=== PATIENT | female | born 1955 | race Asian ===

== ENCOUNTER 2018-02-22 14:47 | Observation (INO) | payer MEDICARE, OTHER ==
[~2018-02-22] VITALS: Ht 147.3 cm; Wt 64.4 kg
[2018-02-22] VITALS (9 sets, daily range): BP systolic 98–145; BP diastolic 56–84; PULSE 68–87; RESP 16–20; TEMP 97.3–98.6; O2SAT 94–96
[2018-02-22] MEDS ORDERED: IOHEXOL 350 MG/ML 10 ML VIAL (for RAD DIAG) IVCONTRAST ONE (14:48)
[2018-02-22] MEDS ORDERED: MULT-65 PO (15:13)
[2018-02-22] MEDS ORDERED: KRIL500C2 PO (15:13)
[2018-02-22] MEDS ORDERED: ROSU40 PO (15:13)
[2018-02-22] MEDS ORDERED: CYMB30CA PO (15:13)
[2018-02-22] MEDS ORDERED: AMLO10TA2 PO (15:13)
[2018-02-22] MEDS ORDERED: OCUVTAB PO (15:13)
[2018-02-22] MEDS ORDERED: ASPI-516 CHEW (15:13)
[2018-02-22] MEDS ORDERED: SODIUM CHLORIDE 0.9% FLUSH 10 ML FLUSH IVF PRN (15:30)
--- NOTE | 2018-02-22 15:33 | PD ---
HPI Chief Complaint: Chest Pain Time Seen by Provider: 15:13 Travel History International Travel<30 days: No Contact w/Intl Traveler<30days: No Traveled to known affect area: No History of Present Illness HPI The patient was seen and examined in the presence of the nurse. This patient complains of chest pain. For the last several days she has had intermittent squeezing left-sided chest pains. They radiated up into her neck and face toward her head. They are not exertional. She has history of ME. She has no stents or bypass grafting. She has history of known thoracic aortic aneurysm that was getting monitored every 2 years by her physician in [place] but she does admit to noncompliance and has been skipping those checks. She does not know how large it is. Symptom severity is moderate. No alleviating factors. No exacerbating factors. PFSH Past Medical History Hx Anticoagulant Therapy: Yes (BABY ASA) AAA: Yes Cardiovascular Problems: Yes (ME, HTN, CHOL AAA) High Cholesterol: Yes Diabetes: No Diminished Hearing: No Hypertension: Yes Tetanus Vaccination: Unknown ?: Not Social History Alcohol Use: No Tobacco Use: No Substance Use: No Allergies-Medications (Allergen,Severity, Reaction): Coded Allergies: No Known Drug Allergies (Verified Allergy, Unknown, 02/22/18) Reported Meds & Prescriptions Reported Meds & Active Scripts Active Reported Krill Oil 500 Mg Capsule 500 Mg PO DAILY Ocuvite (Multiple Vitamins W/ Minerals) 1 Tab 1 Tab PO DAILY Multi-Vitamin Daily (Multiple Vitamin) 1 Tab Tab 1 Tab PO DAILY Cymbalta DR (Duloxetine HCl) 30 Mg Capdr 30 Mg PO TID Crestor (Rosuvastatin Calcium) 40 Mg Tab 40 Mg PO HS Amlodipine (Amlodipine Besylate) 10 Mg Tab 10 Mg PO DAILY Aspirin 81 Mg Chew 81 Mg CHEW DAILY Review of Systems General / Constitutional: No: Fever Eyes: No: Visual changes HENT: No: Vertigo Cardiovascular: Positive: Chest Pain or Discomfort Respiratory: No: Shortness of Breath Gastrointestinal: No: Abdominal Pain Genitourinary: No: Dysuria Musculoskeletal: No: Pain Skin: No Rash Neurologic: No: Weakness Psychiatric: No: Depression Endocrine: No: Polydipsia Hematologic/Lymphatic: No: Easy Bruising Physical Exam Narrative GENERAL: Well-nourished, well-developed patient in no apparent distress. SKIN: Focused skin assessment reveals no rash and nodules. Skin is Warm and dry. HEAD: Atraumatic. Normocephalic. EYES: Pupils equal and round. No scleral icterus. No injection or drainage. ENT: No nasal bleeding or discharge. Mucous membranes pink and moist. NECK: Trachea midline. No JVD. CARDIOVASCULAR: Regular rate and rhythm. No murmur appreciated. RESPIRATORY: No accessory muscle use. Clear to auscultation. Breath sounds equal bilaterally. GASTROINTESTINAL: Abdomen soft, non-tender, nondistended. Hepatic and splenic margins not palpable. MUSCULOSKELETAL: No obvious deformities. No clubbing. No cyanosis. No edema. NEUROLOGICAL: Awake and alert. No obvious cranial nerve deficits. Motor grossly within normal limits. Normal speech. PSYCHIATRIC: Appropriate mood and affect; insight and judgment normal. Data Data Last Documented VS Vital Signs Date Time Temp Pulse Resp B/P (MAP) Pulse Ox O2 Delivery O2 Flow Rate FiO2 02/22/18 16:23 70 16 117/82 (94) 94 Room Air 02/22/18 15:12 98.6 Orders Orders Electrocardiogram (02/22/18 15:22) Basic Metabolic Panel (Bmp) (02/22/18 15:22) Ckmb (Isoenzyme) Profile (02/22/18 15:22) Complete Blood Count With Diff (02/22/18 15:22) Magnesium (Mg) (02/22/18 15:22) Prothrombin Time / Inr (Pt) (02/22/18 15:22) Act Partial Throm Time (Ptt) (02/22/18 15:22) Troponin I (02/22/18 15:22) Chest, Single Ap (02/22/18 15:22) Ecg Monitoring (02/22/18 15:22) Iv Access Insert/Monitor (02/22/18 15:22) Oximetry (02/22/18 15:22) Sodium Chloride 0.9% Flush (Ns Flush) (02/22/18 15:30) Cta Thor Abd Aorta W Iv C W3d (02/22/18 15:22) CKMB (02/22/18 16:55) CKMB% (02/22/18 16:55) Iohexol 350 Inj (Omnipaque 350 Inj) (02/22/18 14:48) Admit Order (Ed Use Only) (02/22/18 18:22) Labs Laboratory Tests Test 02/22/18 15:20 02/22/18 16:55 White Blood Count 5.4 TH/MM3 Red Blood Count 4.35 MIL/MM3 Hemoglobin 13.4 GM/DL Hematocrit 40.1 % Mean Corpuscular Volume 92.1 FL Mean Corpuscular Hemoglobin 30.8 PG Mean Corpuscular Hemoglobin Concent 33.5 % Red Cell Distribution Width 13.2 % Platelet Count 258 TH/MM3 Mean Platelet Volume 8.3 FL Neutrophils (%) (Auto) 51.1 % Lymphocytes (%) (Auto) 37.3 % Monocytes (%) (Auto) 6.8 % Eosinophils (%) (Auto) 2.9 % Basophils (%) (Auto) 1.9 % Neutrophils # (Auto) 2.7 TH/MM3 Lymphocytes # (Auto) 2.0 TH/MM3 Monocytes # (Auto) 0.4 TH/MM3 Eosinophils # (Auto) 0.2 TH/MM3 Basophils # (Auto) 0.1 TH/MM3 CBC Comment DIFF FINAL Differential Comment Prothrombin Time 9.7 SEC Prothromb Time International Ratio 1.0 RATIO Activated Partial Thromboplast Time 26.0 SEC Blood Urea Nitrogen 16 MG/DL Creatinine 0.62 MG/DL Random Glucose 87 MG/DL Calcium Level 8.8 MG/DL Magnesium Level 2.2 MG/DL Sodium Level 138 MEQ/L Potassium Level 4.2 MEQ/L Chloride Level 104 MEQ/L Carbon Dioxide Level 30.0 MEQ/L Anion Gap 4 MEQ/L Estimat Glomerular Filtration Rate 97 ML/MIN Total Creatine Kinase 163 U/L Creatine Kinase MB 2.5 NG/ML Troponin I LESS THAN 0.02 NG/ML MDM Medical Decision Making Medical Screen Exam Complete: Yes Emergency Medical Condition: Yes Medical Record Reviewed: Yes Differential Diagnosis ACS, angina, noncardiac chest pain, aneurysm leak or enlargement Narrative Course I have reviewed the patient's electronic medical record. Patient's initial vital signs are normal I reviewed her EKG which is normal Given her history of ME and thoracic aortic aneurysm she will require extensive workup given her recent chest pains She took her aspirin today IV placed and labs sent I reviewed her chest x-ray which shows no pneumothorax CBC and metabolic studies and cardiac enzymes are normal Patient stated she had a thoracic aneurysm so I did a CTA of the chest with 3D reconstruction which reveals no evidence of aneurysm. There is some atherosclerosis of the aorta. However there is an inflammatory mass like area in the left upper lobe of unclear etiology. Not sure if this is causing her symptoms are incidental finding. She does have left upper chest pain. She does not have any pneumonia symptoms. she has never smoked I have a page out to the hospitalist to discuss. She will be a 23 hour observation on telemetry for evaluation of her chest pain. Hospitalist will decide how aggressive to evaluate the CTA finding or let the primary physician as an outpatient do it. Diagnosis Primary Impression: Chest pain Qualified Codes: R07.9 - Chest pain, unspecified Additional Impressions: CAD (coronary artery disease) Qualified Codes: I25.119 - Atherosclerotic heart disease of [place] coronary artery with unspecified angina pectoris Mass of left lung Admitting Information Admitting Physician Requests: Observation Polo Kraus MD Feb 22, 2018 15:33
[2018-02-22 15:41] LABS: AUTOMATED NEUTROPHIL # 2.7 TH/MM3 (1.8-7.7); BASOPHIL # 0.1 TH/MM3 (0-0.2); BASOPHIL % 1.9 % (0.0-2.0); EOSINOPHIL # 0.2 TH/MM3 (0-0.4); EOSINOPHIL % 2.9 % (0.0-4.0); HEMATOCRIT 40.1 % (35.0-46.0); HEMOGLOBIN 13.4 GM/DL (11.6-15.3); LYMPH % 37.3 % (9.0-44.0); MEAN CELL VOLUME 92.1 FL (80.0-100.0); MEAN CORPUSCULAR HEMOGLOBIN 30.8 PG (27.0-34.0); MEAN CORPUSCULAR HGB CONC 33.5 % (32.0-36.0); MEAN PLATELET VOLUME 8.3 FL (7.0-11.0); MONO % 6.8 % (0.0-8.0); MONOCYTE # 0.4 TH/MM3 (0-0.9); NEUT % 51.1 % (16.0-70.0); PLATELET COUNT 258 TH/MM3 (150-450); RED BLOOD COUNT 4.35 MIL/MM3 (4.00-5.30); RED CELL DISTRIBUTION WIDTH 13.2 % (11.6-17.2); WHITE BLOOD COUNT 5.4 TH/MM3 (4.0-11.0)
--- NOTE | 2018-02-22 15:43 | RADRPT ---
EXAM DATE/TIME: 02/22/2018 15:28 [facility] COMPARISON: No previous studies available for comparison. INDICATIONS : Chest pain MEDICAL HISTORY : Myocardial infarction. Hypertension Hypercholesterolemia. SURGICAL HISTORY : None. ENCOUNTER: Initial ACUITY: 2 days PAIN SCORE: 7/10 LOCATION: Left chest FINDINGS: Minimal streaky parenchymal opacity in the left lung base. Right lung is clear. Cardiac contour is sa tisfactory. No effusion. CONCLUSION: The left base parenchymal opacity Sergio Sandy MD on February 22, 2018 at 15:40 Board Certified Radiologist. This report was verified electronically.
[2018-02-22 16:01] LABS: PROTHROMBIN TIME - PATIENT 9.7 SEC (9.8-11.6)
[2018-02-22 17:14] LABS: CHLORIDE 104 MEQ/L (98-107); SODIUM (NA) 138 MEQ/L (136-145)
[2018-02-22 17:16] LABS: CALCIUM 8.8 MG/DL (8.5-10.1)
[2018-02-22 17:17] LABS: BLOOD UREA NITROGEN 16 MG/DL (7-18); GLUCOSE,RANDOM 87 MG/DL (74-106); MAGNESIUM 2.2 MG/DL (1.5-2.5)
[2018-02-22 17:20] LABS: CREATININE 0.62 MG/DL (0.50-1.00); GLOMERULAR FILTRATION RATE 97 ML/MIN (>89)
[2018-02-22 17:25] LABS: TROPONIN I LESS THAN 0.02 NG/ML (0.02-0.05)
--- NOTE | 2018-02-22 18:04 | RADRPT ---
EXAM DATE/TIME: 02/22/2018 17:27 [facility] COMPARISON: No previous studies available for comparison. INDICATIONS : Intermittent left side chest pain that radiates to left neck and head. IV CONTRAST: 95 cc Omnipaque 350 (iohexol) IV RADIATION DOSE: 19.84 CTDIvol (mGy) MEDICAL HISTORY : Myocardial infarction. Hypertension. Thoracic aortic aneurysm. SURGICAL HISTORY : None. ENCOUNTER: Initial ACUITY: 1 week PAIN SCALE: 5/10 LOCATION: Left chest TECHNIQUE: Volumetric scanning was performed using a multi-row detector CT scanner. The data was post processed with a variety of visualization algorithms including full volume maximum intensity projection, multi -planar sliding thin slab reformation, curved planar reformation, and surface rendering techniques. Using automated exposure control and adjustment of the mA and/or kV according to patient size, radiat ion dose was kept as low as reasonably achievable to obtain optimal diagnostic quality images. DICOM format image data is available electronically for review and comparison. FINDINGS: LUNGS: 17 mm area of groundglass infiltrates seen anterolaterally in the left upper lobe, series 3 image 20. There is trace atelectasis of both bases. MEDIASTINUM: No abnormally enlarged lymph nodes by CT criteria. No axillary or hilar abnormalities are identified. ABDOMEN: The liver and spleen are free of focal defects. The gallbladder and pancreas demonstrate no abnormali ty. The adrenal glands are normal. The kidneys demonstrate no evidence of solid renal mass or hydrone phrosis. No free fluid or abdominal masses are identified. No para-aortic adenopathy is seen. PELVIS: No evidence of free fluid or pelvic mass. No abnormally enlarged inguinal or retroperitoneal lymph no ravi are present. The bladder is unremarkable. THORACIC AORTA: The thoracic aortic root is normal with normal branching of the great vessels. There is no evidence of aneurysm or dissection. ABDOMINAL AORTA: The aorta is normal in caliber without aneurysm or dissection. The renal arteries are patent bilater ally. The proximal celiac and superior mesenteric arteries are patent and normal in diameter. Mild patchy atherosclerotic plaque noted. PELVIC VESSELS: The internal iliac and external iliac vessels are patent without aneurysm or stenosis. CONCLUSION: 1. Mild patchy atherosclerosis of the aorta the vessels are otherwise normal. No aneurysm or dissecti on. 2. Focal and mildly masslike groundglass opacity in the left upper lobe. This is potentially infectio us or inflammatory but the differential would include malignancy. Clinical management/surveillance an d a followup noncontrast chest CT in 3 months recommended. If felt clinically indicated, a outpatient PET CT is suggested sooner. Sergio Rivera MD on February 22, 2018 at 17:59 Board Certified Radiologist. This report was verified electronically.
[2018-02-22] MEDS ORDERED: ASPIRIN 325 MG TAB PO ONE (19:00)
[2018-02-22] MEDS ORDERED: ATORVASTATIN 40 MG TAB PO SCH (21:00)
[2018-02-23] VITALS: BP 105/59; PULSE 69; RESP 16; TEMP 96.9; O2SAT 97
[2018-02-23 04:00] VITALS: BP 104/63; PULSE 70; RESP 16; TEMP 96.8; O2SAT 97
[2018-02-23 08:00] VITALS: BP 110/67; PULSE 76; RESP 18; TEMP 97.8; O2SAT 94
[2018-02-23] MEDS ORDERED: ASPIRIN 325 MG TAB PO SCH (09:00)
[2018-02-23] MEDS ORDERED: PNEUMOCOCCAL POLYVALENT INJ 25 MCG/0.5 ML SYR IM ONE (09:00)
--- NOTE | 2018-02-23 12:55 | HHI.HP ---
[facility] Non-Staff Admission Diagnosis chest pain, L upper lobe inflammatory mass Diagnoses: (1) Chest pain Diagnosis: Principal (2) Mass of left lung Diagnosis: Principal Chief Complaint: Chest and neck pain Travel History International Travel<30 Days: No Contact w/Intl Traveler <30 Da: No Traveled to Known Affected Are: No History of Present Illness 63-year-old female with known history of hypertension, hypokalemia, myocardial infarction who presented to the emergency department for evaluation of chest pain. Patient states that she has been experiencing 2 day history of intermittent chest discomfort that lasts approximately 30 minutes at a time and resolves on its own. She states that is a 5/10 on a pain scale. The pain is not worsened with exertion and does not improve with rest. She states that the pain starts in the left anterior chest and radiates up into her left neck. The pain was associated with nausea, shortness of breath. Denied any vomiting, diaphoresis, lightheadedness, dizziness. 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 Her last cardiac evaluation with stress test was done in 2016 which was normal. Patient did have workup done in the emergency department and found to have a focal and mildly masslike groundglass opacity in the left upper lobe. Recommending 3 month follow-up. ER physician recommended the patient be observed in the hospital to evaluate her chest pain Review of Systems Respiratory: COMPLAINS OF: Shortness of breath Cardiovascular: COMPLAINS OF: Chest pain Gastrointestinal: COMPLAINS OF: Nausea Musculoskeletal: COMPLAINS OF: Neck pain Except as stated in HPI: all other systems reviewed are Neg Past Family Social History Past Medical History Hypertension Hyperlipidemia History of myocardial infarction Past Surgical History Bilateral shoulder surgery Lower back surgery Reported Medications Current Medications Sodium Chloride (NS Flush) 2 ml UNSCH PRN IVF FLUSH AFTER USING IV ACCESS; Start 02/22/18 at 15:30 Iohexol (Omnipaque 350 Inj) 95 ml STK-MED ONCE IVCONTRAST Last administered on 02/22/18at 14:48; Start 02/22/18 at 14:48; Stop 02/22/18 at 17:43; Status DC Aspirin (Aspirin) 325 mg ONCE ONCE PO Last administered on 02/22/18at 18:58; Start 02/22/18 at 19:00; Stop 02/22/18 at 19:01; Status DC Aspirin (Aspirin) 325 mg DAILY PO Last administered on 02/23/18at 09:34; Start 02/23/18 at 09:00 Atorvastatin Calcium (Lipitor) 80 mg HS PO Last administered on 02/22/18at 21:36 ; Start 02/22/18 at 21:00 Pneumococcal Polyvalent Vaccine (Pneumovax-23 Inj) 25 mcg ONCE ONCE IM Last administered on 02/23/18at 09:37; Start 02/23/18 at 09:00; Stop 02/23/18 at 09:01 ; Status DC Allergies: Coded Allergies: No Known Drug Allergies (Verified Allergy, Unknown, 02/22/18) Family History Reviewed and significant for mother still alive with dementia. Father at age 61 from myocardial infarction Social History Patient states that she does drink alcohol occasionally. Denies any tobacco or illicit drugs Physical Exam Vital Signs Vital Signs Date Time Temp Pulse Resp B/P (MAP) Pulse Ox O2 Delivery O2 Flow Rate FiO2 02/23/18 08:00 97.8 76 18 110/67 (81) 94 02/23/18 04:00 96.8 70 16 104/63 (77) 97 02/23/18 00:00 96.9 69 16 105/59 (74) 97 02/22/18 21:00 97.3 68 16 113/56 (75) 96 02/22/18 20:51 68 02/22/18 20:19 68 16 102/71 (81) 94 02/22/18 19:01 75 16 98/67 (77) 96 Room Air 02/22/18 18:23 75 16 107/67 (80) 96 Room Air 02/22/18 16:23 70 16 117/82 (94) 94 Room Air 02/22/18 15:28 16 94 Room Air 02/22/18 15:12 98.6 87 16 145/84 (104) 94 02/22/18 15:11 16 94 Room Air 02/22/18 14:58 98.6 87 20 145/84 (104) 94 Physical Exam GENERAL: Well-developed, well-nourished, in no acute distress. alert and orientated HEENT: Head is normocephalic without any lesions or masses noted. Facial features are symmetric. Eyes: Pupils equal round reactive to light. Extraocular muscles are intact. Conjunctivae were clear. Oropharyngeal: Pharynx without any erythema edema. Tongue is midline without deviation. Buccal mucosa is moist without any masses or lesions NECK: Supple without any masses. Trachea midline no deviation. No JVD, no bruits are appreciated CARDIAC: Regular rhythm, regular rate. S1/S2 are heard. No murmurs gallops or rubs. Reproducible palpable tenderness noted over the left anterior chest LUNGS: Clear to auscultation bilaterally. No wheeze, rhonchi or rales. No use of accessory muscles on inspiration or expiration. ABDOMEN: Soft, nontender. Nondistended. Bowel sounds heard in all 4 quadrants. No organomegaly or masses. Negative rebound, negative guarding EXTREMITIES: No edema, pulses are equal bilaterally. No cyanosis or clubbing NEUROLOGY: Mood and affect appear appropriate. Cranial nerves II through XII grossly intact. Muscle strength 5/5 in upper and lower extremities bilaterally. Deep tendon reflexes are 2+ in upper and lower extremities bilaterally. Laboratory Laboratory Tests Test 02/22/18 15:20 02/22/18 16:55 02/22/18 22:50 02/23/18 07:00 White Blood Count 5.4 Red Blood Count 4.35 Hemoglobin 13.4 Hematocrit 40.1 Mean Corpuscular Volume 92.1 Mean Corpuscular Hemoglobin 30.8 Mean Corpuscular Hemoglobin Concent 33.5 Red Cell Distribution Width 13.2 Platelet Count 258 Mean Platelet Volume 8.3 Neutrophils (%) (Auto) 51.1 Lymphocytes (%) (Auto) 37.3 Monocytes (%) (Auto) 6.8 Eosinophils (%) (Auto) 2.9 Basophils (%) (Auto) 1.9 Neutrophils # (Auto) 2.7 Lymphocytes # (Auto) 2.0 Monocytes # (Auto) 0.4 Eosinophils # (Auto) 0.2 Basophils # (Auto) 0.1 CBC Comment DIFF FINAL Differential Comment Prothrombin Time 9.7 Prothromb Time International Ratio 1.0 Activated Partial Thromboplast Time 26.0 Blood Urea Nitrogen 16 Creatinine 0.62 Random Glucose 87 Calcium Level 8.8 Magnesium Level 2.2 Sodium Level 138 Potassium Level 4.2 Chloride Level 104 Carbon Dioxide Level 30.0 Anion Gap 4 Estimat Glomerular Filtration Rate 97 Total Creatine Kinase 163 Creatine Kinase MB 2.5 Troponin I LESS THAN 0.02 LESS THAN 0.02 LESS THAN 0.02 Result Diagram: 02/22/18 1520 02/22/18 1655 Imaging Last Impressions Chest X-Ray 02/22/18 1522 Signed Impressions: Service Date/Time: Thursday, February 22, 2018 15:28 - CONCLUSION: The left base parenchymal opacity Sergio Sandy MD Aorta CTA 02/22/18 1522 Signed Impressions: Service Date/Time: Thursday, February 22, 2018 17:27 - CONCLUSION: 1. Mild patchy atherosclerosis of the aorta the vessels are otherwise normal. No aneurysm or dissection. 2. Focal and mildly masslike groundglass opacity in the left upper lobe. This is potentially infectious or inflammatory but the differential would include malignancy. Clinical management/surveillance and a followup noncontrast chest CT in 3 months recommended. If felt clinically indicated, a outpatient PET CT is suggested sooner. Sergio Rivera MD Caplig[place]i VTE Risk Assessment Caprini VTE Risk Assessment: Mod/High Risk (score >= 2) Caprini Risk Assessment Model Point Value = 1 Point Value = 2 Point Value = 3 Point Value = 5 Age 41-60 Minor surgery BMI > 25 kg/m2 Swollen legs Varicose veins or History of unexplained or recurrent spontaneous Oral contraceptives or hormone replacement Sepsis (< 1 month) Serious lung disease, including pneumonia (< 1 month) Abnormal pulmonary function Acute myocardial infarction Congestive heart failure (< 1 month) History of inflammatory bowel disease Medical patient at bed rest Age 61-74 Arthroscopic surgery Major open surgery (> 45 min) Laparoscopic surgery (> 45 min) Malignancy Confined to bed (> 72 hours) Immobilizing plaster cast Central venous access Age >= 75 History of VTE Family history of VTE Factor V Leiden Prothrombin [id number] Lupus anticoagulant Anticardiolipin antibodies Elevated serum homocysteine Heparin-induced thrombocytopenia Other congenital or acquired thrombophilia Stroke (< 1 month) Elective arthroplasty Hip, pelvis, or leg fracture Acute spinal cord injury (< 1 month) Prophylaxis Regimen Total Risk Factor Score Risk Level Prophylaxis Regimen 0-1 Low Early ambulation 2 Moderate Order ONE of the following: *Sequential Compression Device (SCD) *Heparin 5000 units SQ BID 3-4 Higher Order ONE of the following medications: *Heparin 5000 units SQ TID *Enoxaparin/Lovenox 40 mg SQ daily (WT < 150 kg, CrCl > 30 mL/min) *Enoxaparin/Lovenox 30 mg SQ daily (WT < 150 kg, CrCl > 10-29 mL/min) *Enoxaparin/Lovenox 30 mg SQ BID (WT < 150 kg, CrCl > 30 mL/min) AND/OR *Sequential Compression Device (SCD) 5 or more Highest Order ONE of the following medications: *Heparin 5000 units SQ TID (Preferred with Epidurals) *Enoxaparin/Lovenox 40 mg SQ daily (WT < 150 kg, CrCl > 30 mL/min) *Enoxaparin/Lovenox 30 mg SQ daily (WT < 150 kg, CrCl > 10-29 mL/min) *Enoxaparin/Lovenox 30 mg SQ BID (WT < 150 kg, CrCl > 30 mL/min) AND *Sequential Compression Device (SCD) Assessment and Plan Assessment and Plan Chest pain Patient does have increased risk factors to include age, hypertension, hyperlipidemia, history of myocardial infarction, family history of heart disease Patient has been ruled out for acute coronary event with serial cardiac enzymes remain negative EKG shows sinus rhythm without any acute changes Offered stress test for evaluation of underlying ischemia. However, daughter deferring testing at this time and patient is in agreement Chest pain could also be related to the masslike abnormality on x-ray, recommending outpatient follow-up Patient and daughter requesting carotid ultrasound to be performed because of the pain is going up her neck. Patient and family agreeable to discharge if carotid ultrasound is unremarkable Carotid ultrasound was performed and was unremarkable for any flow-limiting carotid stenosis Hypertension, hyperlipidemia, coronary disease, history of myocardial infarction Home medications have been continued DVT prevention Sequential compression devices Discharge disposition Discharge home in stable condition Activity: Ad riddhi. Diet: Healthy heart diet Medication per medication reconciliation Follow-up with primary medical doctor in 1 week Discussed Condition With Patient, daughter, nursing staff Problem Qualifiers (1) Chest pain: Qualified Codes: R07.9 - Chest pain, unspecified Polo Gr Feb 23, 2018 12:55
[2018-02-23] MEDS ORDERED: DULoxetine HCl DR 30 MG CAP PO SCH (13:00)
--- NOTE | 2018-02-23 15:33 | RADRPT ---
EXAM DATE/TIME: 02/23/2018 14:17 [facility] COMPARISON: No previous studies available for comparison. INDICATIONS : Neck pain. MEDICAL HISTORY : Myocardial infarction. Hypertension. Thoracic aortic aneurysm. SURGICAL HISTORY : None. ENCOUNTER: Initial ACUITY: 1 day PAIN SCORE: 5/10 LOCATION: Bilateral neck. PEAK SYSTOLIC VELOCITIES (cm/sec): ICA/CCA RATIO: Right: 0.8 Left: 0.7 ICA: Right: 61.1 Left: 59.7 CCA: Right: 78.6 Left: 84.2 ECA: Right: 75.7 Left: 64.5 VERTEBRAL: Right: 41.2 antegrade Left: 43.3 antegrade Elevated flow velocities and ICA/CCA ratios have been found to correlate with increased degrees of vessel stenosis, calculated as percentage of diameter relative to a normal segment of distal ICA/CCA FINDINGS: RIGHT CAROTID: No significant stenosis is visualized. The waveforms are within normal limits. LEFT CAROTID: No significant stenosis is visualized. The waveforms are within normal limits. VERTEBRAL ARTERIES: Antegrade flow is seen in both vertebral arteries. MISCELLANEOUS: None. CONCLUSION: No evidence of flow-limiting carotid stenosis. Sergio Sandy MD on February 23, 2018 at 15:30 Board Certified Radiologist. This report was verified electronically.
--- NOTE | 2018-02-23 15:48 | HHI.DCPOC ---
Discharge Care Plan Diagnosis: (1) Chest pain (2) Mass of left lung Goals to Promote Your Health * To prevent worsening of your condition and complications * To maintain your health at the optimal level Directions to Meet Your Goals Take your medications as prescribed Follow your dietary instruction Follow activity as directed Keep your appointments as scheduled Take your immunizations and boosters as scheduled If your symptoms worsen call your PCP, if no PCP go to Urgent Care Center or Emergency Room Smoking is Dangerous to Your Health. Avoid second hand smoke Call the 24-hour hour crisis hotline for domestic abuse at [facility] Feb 23, 2018 15:48
--- NOTE | 2018-02-23 15:50 | EKG ---
Date Performed: 02/22/2018 Time Performed: 15:13:33 PTAGE: 63 years EKG: Sinus rhythm NORMAL ECG NO PREVIOUS TRACING DOCTOR: Heather Marks Interpretating Date/Time 02/23/2018 15:49:08
[2018-02-23 16:00] VITALS: BP 111/70; PULSE 83; RESP 18; TEMP 97.4; O2SAT 92
== END 2018-02-23 16:54 | disposition home or self-care (01) ==
LOC: PHED 14:47 → PHEDA 18:24 → PH3B 20:32
PROVIDERS: ADMIT Hospitalist; ATTEND Hospitalist
DX: R07.9 Chest pain, unspecified (principal); R91.8 Other nonspecific abnormal finding of lung field; I10 Essential (primary) hypertension; I70.0 Atherosclerosis of aorta; I71.4 Abdominal aortic aneurysm, without rupture; I71.2 Thoracic aortic aneurysm, without rupture; E78.5 Hyperlipidemia, unspecified; E78.00 Pure hypercholesterolemia, unspecified; I25.2 Old myocardial infarction; Z91.19 Patient's noncompliance with other medical treatment and regimen; Z82.49 Family history of ischemic heart disease and other diseases of the circulatory system; Z23 Encounter for immunization; Z79.01 Long term (current) use of anticoagulants; Z79.82 Long term (current) use of aspirin
CPT/HCPCS: 71045; 71275; 74174; 80048; 82550; 82552; 83735; 84484; 85025; 85610; 85730; 90732; 93005; 93880; 96372; 99285; G0378; Q9967